=== PATIENT | male | born 1975 | race Caucasian/White ===

== ENCOUNTER 2018-11-29 10:24 | Outpatient (CLI) | payer BC ==
--- NOTE | 2018-11-29 14:50 | Diagnostic Imaging Report ---
Indication: Knee pain 3 weeks after a fall Technique: 4 views of the left knee Comparison: None Findings: Small corticated ossific density projects just superior to the anterior upper pole of the patella on the lateral view, not seen on any other images. No evidence of acute fracture otherwise. No dislocations. The joint spaces are preserved. There is a small bone island within the distal femur Impression: Small ossific density adjacent to the upper pole of the patella. Significance uncertain, small avulsion fracture fragment possible. This could also represent a detached osteophyte. Acuity indeterminate, although cortication of the density suggests that this is not likely acute. This could also represent some heterotopic ossification or a small ununited ossification center. Correlate with clinical findings No acute process otherwise
== END 2018-11-29 12:24 | disposition home or self-care (01) ==
LOC: RAD 10:24
DX: M25.562 Pain in left knee (principal)